=== PATIENT | female | born 1970 | race Caucasian/White ===

== ENCOUNTER 2016-06-27 17:53 | Emergency (ER) | payer BC, MEDICAID, OTHER ==
[2016-06-27] MEDS ORDERED: predniSONE 20 MG TABLET ONE (20:02)
[2016-06-27] MEDS ORDERED: DOXYCYCLINE HYCLATE 100 MG TABLET ONE (20:02)
[2016-06-27] MEDS ORDERED: HYDROcodone/ACETAMINOPHEN 1 EACH TABLET ONE (20:02)
--- OUTSIDE RECORDS SUMMARY | 2016-06-27 22:22 | XMS REPORT | Continuity of Care Document ---
:1970 Author Organization [employer] Address Unavailable [place] [address] Care Team Providers Name Role Phone Unavailable Primary Care Provider Unavailable Source Comments This disclosure is being made pursuant to the [employer] program and maynot contain all information available regarding this patient.[employer] Active Allergies and Adverse Reactions Not on File Current Medications Be aware that medications may not be up to date as of this document. Alwaysverify current medications with the patient. Not on file Active Problems Not on file Social History Tobacco Use Types Packs/Day Years Used Date Never Assessed Plan of Care Health Maintenance Due Date Last Done Comments Retired-Pertussis Vaccine Adult 1988 Retired-Tetanus Vaccine Adult 1988 Pap Smear 1990 Mammogram 2009 Retired-INFLUENZA VACCINE 12/01/2014 Results from Last 3 Months Not on file
--- OUTSIDE RECORDS SUMMARY | 2016-06-27 22:23 | XMS REPORT | Continuity of Care Document ---
:1970 Author Organization [facility] ([facility]) Address [address] [place] [address] Phone [phone] Care Team Providers Name Role Phone Ravindra Christian Primary Care Provider [phone] Source Comments This disclosure is being made pursuant to the Care Everywhere program, applicable federal and state laws, and may not contain all informaitonavailable regarding this patient.[facility] ([facility]) Active Allergies and Adverse Reactions Allergen Noted Date Severity Reactions Comments Codeine 08/05/2008 Pruritus Ketorolac Tromethamine 08/05/2008 Headache Sumatriptan Succinate 08/05/2008 Hypotension Tuberculin, Old Skin Test 08/05/2008 Rash Current Medications Prescription Sig. Disp. Refills Start Date End Date Status QUEtiapine (SEROQUEL) take 300 mg by mouth Active 300 mg tablet 2 times daily. DULOXETINE HCL take by mouth. Active (CYMBALTA PO) levothyroxine 100 mcg take 100 mcg by mouth Active tablet daily. doxycycline 100 mg take 1 Cap by mouth 2 28 Cap 0 08/05/2008 Active capsule times daily. Indications: Pelvic inflammatory disease oxyCODONE-acetaminophe take 1 Tab by mouth 30 Tab 0 08/05/2008 Active n 5-325 mg per tablet every 4 hours as needed for Pain. Indications: Pain traMADol 50 mg tablet Take 2 Tabs by mouth 90 Tab 0 11/14/2013 Active every 6 hours as needed. Indications: PAIN oxyCODONE-acetaminophe Take 1-2 Tabs by 40 Tab 0 11/14/2013 Active n 5-325 mg per tablet mouth at bedtime as needed. Do Not exceed 4000 mg of acetaminophen per 24 hours. Indications: PAIN ALPRAZolam 0.5 mg Take 1 Tab by mouth 2 70 Tab 0 11/14/2013 Active tablet times daily. Indications: ANXIETY traMADol 50 mg tablet Take 100 mg by mouth Active 4 times daily as needed. Indications: PAIN ALPRAZolam 0.5 mg Take 0.5 mg by mouth Active tablet 2 times daily. Indications: ANXIETY Active Problems Problem Noted Date Chronic lumbar pain 11/14/2013 Chronic heel pain 11/14/2013 Anxiety 11/14/2013 Abdominal pain 08/05/2008 Overview: Pelvic pain x 2 months GERD 08/05/2008 Migraine headache 08/05/2008 Other disorder of menstruation and other abnormal bleeding from female 2008 genital tract Resolved Problems Problem Noted Date Resolved Date GERD (gastroesophageal reflux disease) 08/05/2008 08/05/2008 Social History Tobacco Use Types Packs/Day Years Used Date Current Every Day Smoker 1 20 Alcohol Use Drinks/Week oz/Week Comments No Last Filed Vital Signs Vital Sign Reading Time Taken Blood Pressure 147/71 11/14/2013 3:05 PM CDT Pulse 87 11/14/2013 3:05 PM CDT Temperature 35.2 C (95.4 F) 11/14/2013 3:05 PM CDT Respiratory Rate 18 11/14/2013 3:05 PM CDT Height 1.727 m (5' 8") 08/05/2008 1:13 PM CDT Weight 113.8 kg (250 lb 14.1 oz) 08/05/2008 1:13 PM CDT Body Mass Index 38.16 08/05/2008 1:13 PM CDT Oxygen Saturation 98% 11/14/2013 3:05 PM CDT Plan of Care Health Maintenance Due Date Last Done Comments Hepatitis B Vaccine (1 of 3 - Primary 1969 Series) Tdap Vaccine 1980 Lipid Disorder Screening 08/18/1987 MMR Vaccine 08/18/1987 Td Vaccine 08/18/1987 Pneumococcal Vaccine (1 of 1 - PPSV23) 1988 Mammogram 2009 Cervical Cancer Screening 08/06/2011 08/05/2008, 06/18/1996 Influenza Vaccine: Seasonal (#1) 11/01/2015 Results from Last 3 Months Not on file
[2016-06-27 23:25] VITALS: BP 137/90
== END 2016-06-27 20:30 | disposition home or self-care (01) ==
LOC: ER 17:53
DX: J32.9 Chronic sinusitis, unspecified (principal); J40 Bronchitis, not specified as acute or chronic

== ENCOUNTER 2016-08-22 21:26 | Emergency (ER) | payer OTHER ==
[2016-08-22 22:01] LABS: Urine Bilirubin Negative (NEGATIVE); Urine Blood Negative /ul (NEGATIVE); Urine Ketone Negative (NEGATIVE); Urine Nitrite Negative (NEGATIVE); Urine Protein Negative (NEGATIVE); Urine Specific Gravity 1.025 SP.GR. (1.005-1.010); Urine Urobilinogen Normal (NORMAL); Urine pH 6.5 pH (5.0-7.0)
[2016-08-22 22:09] LABS: Urine Appearance Clear; Urine Bacteria 1+; Urine Color Yellow; Urine Mucus Many - 3+; Urine RBC None Seen /hpf (0-5); Urine WBC None Seen /hpf (0-5)
--- NOTE | 2016-08-22 22:12 | ERNOTE ---
Abdominal HPI - General Chief Complaint: Abdominal Pain Time Seen by Provider: 08/22/16 22:04 Source: patient Exam Limitations: no limitations - Immun/Allergies/Home Medications Immunizatons: IMMUNIZATION HX Immunizations Up to Date Yes History of Influenza Vaccine Yes Hx Pneumococcal Vaccination Yes Allergies/Adverse Reactions: Allergies sumatriptan [From Imitrex] Allergy (Unknown, Verified 08/22/16 21:42) Stroke-like symptoms, blood pressure dropped, numbness in hands and feet. Slurred speech. sumatriptan succinate [From Imitrex] Allergy (Unknown, Verified 08/22/16 21:42) Stroke-like symptoms tetanus and diphtheria toxoids [tetanus & diphtheria toxoids] Allergy (Verified 08/22/16 21:42) hydromorphone HCl [From Dilaudid] Adverse Reaction (Mild, Verified 08/22/16 21: 42) Nausea codeine [Codeine] Adverse Reaction (Unknown, Verified 08/22/16 21:42) Nausea ketorolac tromethamine [From Toradol] Adverse Reaction (Verified 08/22/16 21:42) migranes Home Medications: HOME MEDICATIONS Levothyroxine Sodium [Synthroid] 50 mcg PO DAILY #30 tablet 01/08/14 [Last Taken 01/06/15] Ranitidine HCl [Zantac] 150 mg PO BID 03/16/15 [Last Taken Unknown] lamoTRIgine [Lamictal] 200 mg PO DAILY 07/06/15 [Last Taken Unknown] ALPRAZolam [Xanax] 0.25 mg PO BID PRN 11/22/15 [Last Taken Unknown] - History of Present Illness Narrative: right sided abdominal pain with some radiation to umbilicus Timing: constant - on her side, getting worse Quality: moderate, sharpness - when it radiates Review of Systems - Review of Systems Constitutional: Absent: recent illness Gastrointestinal/Abdominal: Present: See HPI. Absent: diarrhea, constipation Genitourinary: Absent: frequency, pain - Patient's Past Medical History Patient History - Medical: Anxiety, Bipolar, Depression, GERD, Hypothyroidism, Migraines, Obesity, UTI'S Patient History - Cardiac/Respiratory: No pertinent hx Patient History - Cancer: No Hx of Cancer Patient History - Surgical Procedures: , Tubal Ligation Patient History - Other: None LMP (females 10-50): 3 months LMP (Calendar): 09/15/15 - Family History Mother Family History - Medical: Diabetes Type 2 Family History - Cardiac/Respiratory: No pertinent hx - Social History Living Situations: home Abuse History: No History of abuse Psych History: Hx of Anxiety, Hx of Depression, Current tx/ever been on anti- depressants or anti-anxiety meds Does anyone smoke in the home?: Yes Smoking Status: Current every day smoker Alcohol Use: none Drug Use: benzodiazepine - Immunizations Immunizations Up to Date: Yes Hx Pneumococcal Vaccination: Yes History of Influenza Vaccine: Yes Physical Exam - Physical Exam General Appearance: Present: wd/wn, alert, mild distress Eye Exam: Normal inspection: bilateral, EOMI: bilateral Ears, Nose, Throat: Present: normal ENT inspection Neck: Present: normal inspection, nontender Respiratory: Present: no respiratory distress, normal breath sounds, lungs clear Cardiovascular/Chest: Present: regular rate, rhythm, no murmur Gastrointestinal/Abdominal: Present: normal bowel sounds, tenderness - RUQ. Absent: guarding, rebound Back Exam: Present: normal inspection, normal range of motion, no CVA tenderness Extremity Exam: Present: normal inspection, normal range of motion, no edema Neurological Exam: Present: alert, oriented, normal mood/affect Skin Exam: Present: normal color, warm/dry ED Progress - Results and Orders Patient's Lab Results:: I have reviewed the patient's lab results. Results and Orders: Laboratory Tests 08/22/16 08/22/16 08/22/16 21:40 22:17 22:17 WBC 10.1 Hgb 13.9 Hct 40.5 Plt Count 276 Sodium 142 Potassium 3.9 Chloride 106 Carbon Dioxide 24.8 Anion Gap 15.1 H BUN 17 Creatinine 0.76 Est GFR (Non-Af Amer) 87 D BUN/Creatinine Ratio 22.4 H Random Glucose 111 H Calcium 8.7 Total Bilirubin 0.2 AST 12 ALT 19 Alkaline Phosphatase 103 Total Protein 7.0 Albumin 3.4 Amylase 45 Lipase 117 Urine Color Yellow Urine Appearance Clear Urine pH 6.5 Ur Specific [place] 1.025 Urine Protein Negative Urine Glucose (UA) Negative Urine Ketones Negative Urine Blood Negative Urine Nitrate Negative Urine Bilirubin Negative Urine Urobilinogen Normal Ur Leukocyte Esterase Negative Urine RBC None seen Urine WBC None seen Ur Epithelial Cells >25 H Urine Bacteria 1+ H Urine Mucus Many - 3+ H Urine Culture Comments No culture indicated Urine HCG, Qual 08/22/16 22:17 WBC Hgb Hct Plt Count Sodium Potassium Chloride Carbon Dioxide Anion Gap BUN Creatinine Est GFR (Non-Af Amer) BUN/Creatinine Ratio Random Glucose Calcium Total Bilirubin AST ALT Alkaline Phosphatase Total Protein Albumin Amylase Lipase Urine Color Urine Appearance Urine pH Ur Specific [place] Urine Protein Urine Glucose (UA) Urine Ketones Urine Blood Urine Nitrate Urine Bilirubin Urine Urobilinogen Ur Leukocyte Esterase Urine RBC Urine WBC Ur Epithelial Cells Urine Bacteria Urine Mucus Urine Culture Comments Urine HCG, Qual Negative - Vital Signs Patient's Vital Signs:: I have reviewed the patient's vital signs. Vital Signs: Vital Signs 08/22/16 21:33 Temperature 36.7 C Pulse Rate 82 Respiratory 13 Rate Blood Pressure 153/94 O2 Sat by Pulse 98 Oximetry - X-Ray X-Ray #1 X-Ray: abdomen Interpretation: Reviewed by me X-ray Comments: IMPRESSION: MILD FECAL RETENTION WITHOUT EVIDENCE FOR OBSTRUCTION. Electronically signed by Collin Aguilera D.O.. - Progress/Reassessment Chief Complaint: Abdominal Pain Departure - Departure Clinical Impression: Acute abdominal pain in right upper quadrant Disposition: Home Follow Up Needed Condition: Good Instructions: Abdominal Pain, Adult, [id number] Additional Instructions: Have ultrasound of your gallbladder here at 07:00 am tomorrow. follow up with your regular doctor for results of that test. Referrals: Virginia Mendoza FNP [Primary Care Provider] -
--- OUTSIDE RECORDS SUMMARY | 2016-08-22 22:16 | XMS REPORT | Continuity of Care Document ---
:1970 Author Organization [email or web address] Address Unavailable [place] [address] Care Team Providers Name Role Phone Unavailable Primary Care Provider Unavailable Source Comments This disclosure is being made pursuant to the [employer] program and maynot contain all information available regarding this patient.[email or web address] Active Allergies and Adverse Reactions Not on [...]
--- OUTSIDE RECORDS SUMMARY | 2016-08-22 22:16 | XMS REPORT | Continuity of Care Document ---
:1970 Author Organization [facility] ([facility]) Address [address] [place] [address] Phone [phone] Care Team Providers Name Role Phone Ravindra Christian Primary Care Provider [phone] Source Comments This disclosure is being made pursuant to the Care Everywhere program, applicable federal and state laws, and may not contain all informaitonavailable regarding this patient.[facility] ([facility]) Active Allergies and Adverse Reactions Allergen Noted [...]
[2016-08-22 22:22] LABS: Hematocrit 40.5 % (37.0-47.0); Hemoglobin 13.9 gm/dL (12.5-16.0); Mean Cell Volume 90.6 fl (78-100); Mean Corpuscular Hemoglobin 31.1 pg (27-31); Mean Corpuscular Hgb Conc 34.3 g/dl (32-36); Mean Platelet Volume 10.3 fl (6.0-9.5); Neutrophil # 5.6 K/mm3 (1.3-6.0); Neutrophil % 55.2 % (42-75.0); Platelet Count 276 K/mm3 (150-450); Red Blood Count 4.47 M/mm3 (4.2-5.4); Red Cell Distribution Width 13.1 % (11.5-14.0); White Blood Count 10.1 K/mm3 (4.0-10.5)
[2016-08-22 22:40] LABS: Albumin * 3.4 gm/dl (3.4-5.0); Anion Gap 15.1 mmol/L (6.8-13.8); BUN/Creatinine Ratio 22.4 (9.0-21.6); Bilirubin, Total 0.2 mg/dL (0.0-1.1); Ca. Corrected For Albumin 8.9 mg/dL (8.4-10.2); Calcium * 8.7 mg/dL (7.9-10.9); Carbon Dioxide 24.8 mmol/L (24-32.6); Potassium 3.9 mmol/L (3.4-4.6)
[2016-08-22] MEDS ORDERED: ONDANSETRON HCL/PF 2 MG/ML VIAL IV ONE (22:49)
[2016-08-22] MEDS ORDERED: NALBUPHINE HCL 20 MG/ML AMPUL IV ONE (22:49)
[2016-08-22] MEDS ORDERED: ONDANSETRON HCL/PF 2 MG/ML VIAL ONE (22:50)
[2016-08-22] MEDS ORDERED: NALBUPHINE HCL 20 MG/ML AMPUL ONE (22:50)
[2016-08-23] MEDS ORDERED: traMADol HCL 50 MG TABLET PO ONE (00:14)
[2016-08-23] MEDS ORDERED: traMADol HCL 50 MG TABLET ONE (00:17)
[2016-08-23 00:43] VITALS: BP 134/86
== END 2016-08-23 00:39 | disposition home or self-care (01) ==
LOC: ER 21:26
DX: R10.11 Right upper quadrant pain (principal); F17.200 Nicotine dependence, unspecified, uncomplicated; E03.9 Hypothyroidism, unspecified; K21.9 Gastro-esophageal reflux disease without esophagitis; F31.9 Bipolar disorder, unspecified

== ENCOUNTER 2016-09-04 08:46 | Emergency (ER) | payer OTHER ==
[2016-09-04 09:05] VITALS: BP 153/98
--- OUTSIDE RECORDS SUMMARY | 2016-09-04 09:38 | XMS REPORT | Continuity of Care Document ---
:1970 Author Organization [email or web address] Address Unavailable [place] [address] Care Team Providers Name Role Phone Unavailable Primary Care Provider Unavailable Source Comments This disclosure is being made pursuant to the [employer] program and maynot contain all information available regarding this patient.[email or web address] Active Allergies and Adverse Reactions Not on [...]
--- OUTSIDE RECORDS SUMMARY | 2016-09-04 09:38 | XMS REPORT | Continuity of Care Document ---
:1970 Author Organization [facility] ([facility]) Address [address] [place] [address] Phone [phone] Care Team Providers Name Role Phone Ravindra Christian Primary Care Provider [phone] Source Comments This disclosure is being made pursuant to the Care Everywhere program, applicable federal and state laws, and may not contain all informaitonavailable regarding this patient.[facility] ([facility]) Active Allergies and Adverse Reactions Allergen Noted [...]
--- NOTE | 2016-09-04 09:41 | ERNOTE ---
Integumentary HPI - General Time Seen by Provider: 09/04/16 09:25 Source: patient Exam Limitations: no limitations - Immun/Allergies/Home Medications Immunizations: IMMUNIZATION HX Immunizations Up to Date Yes History of Influenza Vaccine Yes Hx Pneumococcal Vaccination Yes Allergies/Adverse Reactions: Allergies Allergy/AdvReac Type Severity Reaction Status Date / Time sumatriptan [From Imitrex] Allergy Unknown Verified 09/04/16 09:05 sumatriptan succinate Allergy Unknown Verified 09/04/16 09:05 [From Imitrex] hydromorphone HCl AdvReac Mild Nausea Verified 09/04/16 09:05 [From Dilaudid] codeine [Codeine] AdvReac Unknown Nausea Verified 09/04/16 09:05 ketorolac tromethamine AdvReac migranes Verified 09/04/16 09:05 [From Toradol] Home Medications: HOME MEDICATIONS Levothyroxine Sodium [Synthroid] 50 mcg PO DAILY #30 tablet 01/08/14 [Last Taken 01/06/15] Ranitidine HCl [Zantac] 150 mg PO BID 03/16/15 [Last Taken Unknown] lamoTRIgine [Lamictal] 200 mg PO DAILY 07/06/15 [Last Taken Unknown] ALPRAZolam [Xanax] 0.25 mg PO BID PRN 11/22/15 [Last Taken Unknown] Clindamycin HCl [Cleocin HCl] 300 mg PO TID #30 capsule 09/04/16 [Last Taken Unknown] HYDROcodone/ACETAMINOPHEN [[place] 5-325] 1 - 2 tab PO QID PRN #12 tab 09/04/16 [ Last Taken Unknown] - History of Present Illness Narrative: Patient presents to the emergency room for a lesion on the right side of the nose and blurry vision pain and swelling in the submandibular region at the angle of the mandible and a right-sided headache. Denies any fevers or chills she states that she gets cellulitis often. He is here for care she has taken no medication for this condition at this condition started this morning. Supposed a lot of stress recently. States that in addition to the lesion on the right side of her nose she also has blurry vision in the right eye. Review of Systems - Review of Systems Constitutional: Present: no symptoms reported EYE: Present: see HPI ENT: Present: See HPI Respiratory: Present: no symptoms reported Cardiology: Present: no symptoms reported Gastrointestinal/Abdominal: Present: no symptoms reported Genitourinary: Present: no symptoms reported Musculoskeletal: Present: no symptoms reported Skin: Present: no symptoms reported - Patient's Past Medical History Patient History - Medical: Anxiety, Bipolar, Depression, GERD, Hypothyroidism, Migraines, Obesity, UTI'S Patient History - Cardiac/Respiratory: No pertinent hx Patient History - Cancer: No Hx of Cancer Patient History - Surgical Procedures: , Tubal Ligation Patient History - Other: None LMP (Calendar): 09/15/15 - Family History Mother Family History - Medical: Diabetes Type 2 Family History - Cardiac/Respiratory: No pertinent hx - Social History Living Situations: home Abuse History: No History of abuse Psych History: Hx of Anxiety, Hx of Depression, Current tx/ever been on anti- depressants or anti-anxiety meds Does anyone smoke in the home?: Yes Have you smoked in the past 12 months: Yes Alcohol Use: none Drug Use: benzodiazepine - Immunizations Immunizations Up to Date: Yes Hx Pneumococcal Vaccination: Yes History of Influenza Vaccine: Yes Physical Exam - Physical Exam General Appearance: Present: wd/wn, alert, no apparent distress Eye Exam: Other: right - is conjunctival injection of the right conjunctiva. The eyelid, upper eyelid of the right eye is slightly inflamed. Patient is extremely tender in the sub-ocular area and the right zygomatic region. Ears, Nose, Throat: Present: normal pharynx, other - patient has what appears to be a ruptured vesicle on the right side of the nose there is crusty charge from this lesion surrounding hyperemia extending up to the intraocular region tenderness in the entire right side of the face with involvement of the submandibular lymph nodes. This happened this morning suddenly and patient denies hitting anything denies touching her eye denies squeezing anything on her nose Respiratory: Present: no respiratory distress, normal breath sounds, no accessory muscle use, chest nontender, lungs clear Cardiovascular/Chest: Present: regular rate, rhythm, no murmur, normal peripheral pulses Extremity Exam: Present: normal inspection, normal range of motion Lymphatic Exam: Present: other ED Progress - Date and Time Seen: Date and Time: 09/04/16 09:45 Patient will be treated for cellulitis of the right side of the nose as far as the blurriness there are no water proofer on-call here or in [place] however I took a timeout to speak to Dr. Preciado who will be able to see the patient today at 1:00 patient was informed of this I have made the appointment for the patient she is to follow-up with Dr. Preciado today at 1:00 be treated with [place] - Vital Signs Patient's Vital Signs:: I have reviewed the patient's vital signs. Vital Signs: Vital Signs 09/04/16 09:02 Temperature 36.2 C L Pulse Rate 83 Respiratory 18 Rate Blood Pressure 153/98 O2 Sat by Pulse 98 Oximetry - Progress/Reassessment Chief Complaint: Cellulitis Plan - Plan Plan: Believe the constellation of symptoms this patient is having may be secondary to shingles with secondary cellulitis. At this time I took the time to call Dr. Preciado water proofer in [place] area was kind enough to do a phone consult with me and agreed to see the patient today at 1300. Treat the patient for a cellulitis however this patient needs to see the water proofer today at 1:00 and she is stable and appropriate to be discharged home to see that the sotalol just at 1:00, her pain will be treated with [place] and she will be given a prescription for clindamycin 300 mg 3 times a day. Departure Clinical Impression: Cellulitis of external nose - Departure Disposition: Home self-care Condition: Fair Instructions: Cellulitis, Adult, [id number] Additional Instructions: YOU HAVE AN APPOINTMENT FOR YOUR BLURRY VISION WITH THE FELTING MACHINE OPERATOR HELPER AT THE OFFICE OF DR. PRECIADO AT 1 PM TODAY THE ADDRESS IS: [address] [place] [address] [address] IN [place]. PLEASE MAKE SURE THAT YOU ARE THERE A FEW MINUTES PRIOR TO YOUR APPOINTMENT TODAY. Referrals: Virginia Mendoza FNP [Primary Care Provider] - Prescriptions: Clindamycin HCl [Cleocin HCl] 300 mg PO TID #30 capsule HYDROcodone/ACETAMINOPHEN [[place] 5-325] 1 - 2 tab PO QID PRN #12 tab PRN Reason: Pain
[2016-09-04] MEDS ORDERED: HYDROcodone/ACETAMINOPHEN 1 EACH TABLET PO ONE ×2 (09:42→09:52)
[2016-09-04] MEDS ORDERED: CLINDAMYCIN HCL 150 MG CAPSULE PO ONE (09:52)
[2016-09-04] MEDS ORDERED: HYDROcodone/ACETAMINOPHEN 1 EACH TABLET ONE (09:54)
[2016-09-04] MEDS ORDERED: CLINDAMYCIN HCL 150 MG CAPSULE ONE (09:57)
== END 2016-09-04 10:00 | disposition home or self-care (01) ==
LOC: ER 08:46
DX: J34.0 Abscess, furuncle and carbuncle of nose (principal); Z72.0 Tobacco use